=== PATIENT | female | born 1960 | race Caucasian/White ===

== ENCOUNTER 2018-11-22 08:00 | Outpatient (CLI) | payer MEDICAID | END 2018-11-22 09:00 | disposition home or self-care (01) | LOC: D.MAMMO 08:00 | PROVIDERS: ATTEND Family Medicine | DX: Z12.31 Encounter for screening mammogram for malignant neoplasm of breast (principal) ==

== ENCOUNTER 2018-12-11 16:00 | Outpatient (CLI) | payer BC | END 2018-12-11 16:30 | disposition home or self-care (01) | LOC: D.MAMMO 16:00 | PROVIDERS: ATTEND Family Medicine | DX: R92.8 Other abnormal and inconclusive findings on diagnostic imaging of breast (principal) ==

== ENCOUNTER → 2020-02-18 08:42 | Outpatient (CLI) | payer OTHER | END | disposition home or self-care (01) | LOC: D.RAD 08:30 | PROVIDERS: ATTEND Pediatrics | DX: Z02.71 Encounter for disability determination (principal) ==